=== PATIENT | female | born 1980 | race Caucasian/White ===

== ENCOUNTER 2017-12-20 12:28 | Day surgery (SDC) | payer OTHER, SELFPAY ==
[2017-12-20] VITALS (7 sets, daily range): BP systolic 104–127; BP diastolic 74–89; PULSE 58–89; RESP 16–18; TEMP 36.6–36.9; O2SAT 96–100; BMI 27.1
--- NOTE | 2017-12-20 13:45 | RAD_ITS ---
STUDY: X-RAY - LUMBAR SPINE REASON FOR EXAM: Female, 37 years old. Spinal cord stimulator placement. TECHNIQUE: 3 cone-down view(s) of the lumbar spine were obtained intraoperatively. COMPARISON: None FINDINGS: Imaging was provided for placement of a spinal cord stimulator device. RAD/Lumbar Spine 2 or 3 Views IMPRESSION: Imaging provided for placement of a spinal cord stimulator device. Electronically Signed: Ugo Singer MD at 15:33 EDT Tel [phone], Service support ,
[2017-12-20] MEDS: Bupiv/Epi 0.5% Mpf 30 ML Vial (13:55)
== END 2017-12-20 16:55 | disposition home or self-care (01) ==
LOC: SDC 12:32 → AC 12:32
PROVIDERS: Visit Provider Anesthesiology Pain Medicine
PROC: (CPT 63685; principal; 2017-12-20 13:30)
DX: M96.1 Postlaminectomy syndrome, not elsewhere classified (principal); G60.0 Hereditary motor and sensory neuropathy; M79.672 Pain in left foot; M79.671 Pain in right foot
CPT/HCPCS: 01936; 63650 ×2; 63685; 72100; 76000; J7120

== ENCOUNTER → 2021-11-22 | Outpatient (CLI) | payer OTHER, SELFPAY ==
[2021-11-22 16:08] LABS: Amphetamine Urine VISTA NEGATIVE (<1000 ng/mL); Barbiturate Urine VISTA NEGATIVE (< 200 ng/mL); Benzodiazepine Urine VISTA NEGATIVE (< 200 ng/mL); Cocaine Urine VISTA NEGATIVE (< 300 ng/mL); Ecstacy Urine VISTA NEGATIVE (< 500 ng/mL); Methadone Urine VISTA NEGATIVE (< 300 ng/mL); PCP Urine VISTA NEGATIVE (< 25 ng/mL); THC Urine VISTA NEGATIVE (< 50 ng/mL); Vista UDS pH Range 5
== END | disposition home or self-care (01) ==
PROVIDERS: PCP Internal Medicine; Referring Provider Anesthesiology Pain Medicine; Visit Provider Anesthesiology Pain Medicine
DX: F11.20 Opioid dependence, uncomplicated (principal)
CPT/HCPCS: 80307

== ENCOUNTER 2023-04-05 07:22 | Day surgery (SDC) | payer OTHER, SELFPAY ==
[2023-04-05] MEDS: Lactated Ringers 1,000 ML 15 ML IV ×2 (07:57→11:12)
[2023-04-05 07:58] VITALS: BP 122/70; PULSE 64; RESP 18; TEMP 36.6; O2SAT 98; BMI 25.2
[2023-04-05] MEDS: Vancomycin IV 1,000 MG/200 ML BAG 200 MG IV (09:28)
[2023-04-05] MEDS: Bupivacaine Mpf 0.5% 30 ML VIAL (09:54)
[2023-04-05 11:02] VITALS: BP 116/84; BP 122/70; PULSE 88; RESP 16; TEMP 36.2; O2SAT 99
[2023-04-05 11:15] VITALS: BP 118/68; BP 122/70; PULSE 77; RESP 18; O2SAT 97
[2023-04-05 11:21] VITALS: BP 119/70; BP 122/70; PULSE 96; RESP 16; TEMP 36.4; O2SAT 100
[2023-04-05 11:40] VITALS: BP 122/70
== END 2023-04-05 12:15 | disposition home or self-care (01) ==
LOC: SDC 07:23 → AC 07:24
PROVIDERS: PCP Internal Medicine; Referring Provider Anesthesiology Pain Medicine; Visit Provider Anesthesiology Pain Medicine
PROC: (CPT 63688; principal; 2023-04-05 08:45)
DX: Z45.42 Encounter for adjustment and management of neurostimulator (principal); M54.10 Radiculopathy, site unspecified; E03.9 Hypothyroidism, unspecified; Z79.890 Hormone replacement therapy; M96.1 Postlaminectomy syndrome, not elsewhere classified; G89.4 Chronic pain syndrome
CPT/HCPCS: 63688; 95972; 00300; J7120; J2405